=== PATIENT | male | born 1965 | race Caucasian/White ===

== ENCOUNTER → 2023-10-09 19:36 | Outpatient (REF) | payer BC, SELFPAY | LOC: MRI 3T 19:36 | PROVIDERS: ATTENDING PHYSICIAN Otolaryngology; FAMILY PHYSICIAN Family Medicine | DX: G96.00 Cerebrospinal fluid leak, unspecified (principal); Q01.9 Encephalocele, unspecified | CPT/HCPCS: 70553; A9575 ==